=== PATIENT | male | born 2000 | race Caucasian/White ===

== ENCOUNTER 2023-11-25 10:48 | Emergency (ER) | payer BC ==
[2023-11-25 10:58] VITALS: PULSE 48; TEMP 97.8; BMI 21.9
[2023-11-25] MEDS ORDERED: IBUPROFEN 400 MG TABLET (FP) PO ONE (12:02)
[2023-11-25] MEDS: IBUPROFEN 400 MG TABLET (FP) PO ONE (12:06)
[2023-11-25 13:10] VITALS: BP 112/54; RESP 16
== END 2023-11-25 13:10 | disposition home or self-care (01) ==
LOC: FER 10:48
DX: R07.2 Precordial pain (principal); R06.02 Shortness of breath; J34.89 Other specified disorders of nose and nasal sinuses; R00.1 Bradycardia, unspecified
CPT/HCPCS: 71046-TC-FY; 93005; 99284-25

== ENCOUNTER 2023-12-01 20:37 | Emergency (ER) | payer BC ==
[2023-12-01 20:45] VITALS: BP 149/66; PULSE 58; RESP 16; TEMP 97.9; BMI 21.9
[2023-12-01] MEDS ORDERED: FAMOTIDINE 20 MG/50 ML IVPB 20 MG/50 ML MG IVPB ONE (20:46)
[2023-12-01] MEDS ORDERED: methylPREDNISolone NA SUCC 125 MG/2 ML VIAL ONE (20:46)
[2023-12-01] MEDS: methylPREDNISolone NA SUCC 125 MG/2 ML VIAL IVPUSH ONE (20:57)
[2023-12-01] MEDS: FAMOTIDINE 20 MG/50 ML IVPB 20 MG/50 ML MG IVPB ONE (20:57)
== END 2023-12-01 22:57 | disposition home or self-care (01) ==
LOC: FER 20:37
PROC: 3E033GC Introduction of Other Therapeutic Substance into Peripheral Vein, Percutaneous Approach (ICD-10-PCS; principal; 2023-12-01)
PROC: 3E033GC Introduction of Other Therapeutic Substance into Peripheral Vein, Percutaneous Approach (ICD-10-PCS; 2023-12-01)
PROC: 3E033GC Introduction of Other Therapeutic Substance into Peripheral Vein, Percutaneous Approach (ICD-10-PCS; 2023-12-01)
DX: R10.13 Epigastric pain (principal); R61 Generalized hyperhidrosis; T78.1XXA Other adverse food reactions, not elsewhere classified, initial encounter
CPT/HCPCS: 99284-25